=== PATIENT | male | born 1945 | race Caucasian/White ===

== ENCOUNTER 2017-02-20 11:38 | Emergency (ER) | payer MEDICARE ==
[2017-02-20] MEDS ORDERED: HYDROcodone/ACETAMIN 5-325 MG* 1 TAB PO ONE (12:12)
[2017-02-20 12:19] VITALS: BP 148/66
--- NOTE | 2017-02-20 12:31 | UC ---
Knee Pain HPI - HPI Summary HPI Summary: left lower leg pain---history of a knee replacement and has pain in proximal lower leg- - History of Current Complaint Chief Complaint: UCLowerExtremity Stated Complaint: KNEE INJURY Time Seen by Provider: 02/20/17 12:01 Hx Obtained From: Patient Onset/Duration: Sudden Onset - at 9am Pain Intensity: 8 Pain Scale Used: 0-10 Numeric Character: Aching, Throbbing Aggravating Factor(s): Movement, Weight Bearing Alleviating Factor(s): Position Associated Signs And Symptoms: Positive: Swelling Able to Bear Weight: Yes - with pain - Allergies/Home Medications Allergies/Adverse Reactions: Allergies Allergy/AdvReac Type Severity Reaction Status Date / Time No Known Allergies Allergy Verified 02/20/17 12:12 Home Medications: Home Medications Bp Med 1 tab PO DAILY 02/20/17 [History] Rivaroxaban TAB(*) [Xarelto 10 mg (*)] 1 tab PO DAILY 02/20/17 [History Confirmed 02/20/17] SUMAtriptan TAB* [Imitrex TAB*] 02/20/17 [History] Tylenol Arthritis 2 tab PO PRN 02/20/17 [History] PMH/Surg Hx/FS Hx/Imm Hx Previously Healthy: No Cardiovascular History: Hypertension - Surgical History Surgical History: Yes Surgery Procedure, Year, and Place: RIGHT ANKLE REPLACEMENT. LEFT KNEE REPLACEMENT. TONSILS REMOVED A CHILD - Family History Known Family History: Positive: None - Social History Occupation: Retired Lives: With Family Alcohol Use: Weekly Substance Use Type: None Smoking Status (MU): Never Smoked Tobacco Review of Systems Constitutional: Negative Skin: Negative Eyes: Negative ENT: Negative Respiratory: Negative Cardiovascular: Negative Gastrointestinal: Negative Genitourinary: Negative Motor: Negative Neurovascular: Negative Musculoskeletal: Negative, Other: - contusion with sewilling below left knee where patient hit his leg Neurological: Negative Psychological: Negative Is Patient Immunocompromised?: No All Other Systems Reviewed And Are Negative: Yes Physical Exam Triage Information Reviewed: Yes Appearance: Well-Appearing, Well-Nourished, Pain Distress - mild Vital Signs: Initial Vital Signs Temp 98.4 F 02/20/17 12:15 Pulse 55 02/20/17 12:15 Resp 18 02/20/17 12:15 BP 148/66 02/20/17 12:15 Pulse Ox 98 02/20/17 12:15 Vital Signs Reviewed: Yes Eye Exam: Normal Eyes: Positive: Conjunctiva Clear ENT Exam: Normal ENT: Positive: Normal ENT inspection, Hearing grossly normal. Negative: Nasal congestion, Nasal drainage, Trismus, Muffled/hoarse voice Dental Exam: Normal Neck exam: Normal Neck: Positive: Supple, Nontender Respiratory Exam: Normal Respiratory: Positive: Chest non-tender, No respiratory distress, No accessory muscle use Cardiovascular Exam: Normal Cardiovascular: Positive: RRR, Pulses Normal, Brisk Capillary Refill Musculoskeletal Exam: Other Musculoskeletal: Positive: Strength Intact, ROM Intact, Other: - swelling and tender left leg just below the knee Neurological Exam: Normal Neurological: Positive: Alert, Muscle Tone Normal Psychological Exam: Normal Psychological: Positive: Normal Response To Family Skin Exam: Normal Diagnostics - Radiology No standard instances Xray Interpretation: No Acute Changes Radiology Interpretation Completed By: ED Physician Knee Pain Course/Dx - Course Course Of Treatment: Rice, Miquel, follow with Dr. Kline prazul, pain control - Differential Dx/Diagnosis Differential Diagnosis/HQI/PQRI: Contusion, Fracture (Closed), Internal Derangement Of Knee, Sprain, Strain Provider Diagnoses: Contusion proximal left lower leg Discharge - Discharge Plan Condition: Stable Disposition: HOME Prescriptions: Hydrocodone-Acetaminophen [Hydrocodone/Acetaminophen 5-325 mg] 1 tab PO Q6H PRN #16 tab MDD 4 PRN Reason: Pain Patient Education Materials: Knee Pain (ED), Hypertension (ED), RICE Therapy ( ED), Hematoma (ED) Referrals: Pastor Kline MD [Medical Doctor] - 1 Week David Strickland MD [Primary Care Provider] - 2 Weeks
--- NOTE | 2017-02-20 12:58 | RAD ---
Indication: Left leg injury. 2 views of left leg demonstrates periosteal reaction in the right proximal fibula suggestive of a healing fracture. Patient status post left knee replacement. IMPRESSION: Periosteal reaction proximal fibula which may represent healing fracture. Clinical correlation is suggested.
== END 2017-02-20 13:16 | disposition home or self-care (01) ==
LOC: UCEAST 11:38
DX: S80.12XA Contusion of left lower leg, initial encounter (principal); X58.XXXA Exposure to other specified factors, initial encounter; Z96.652 Presence of left artificial knee joint; Z96.661 Presence of right artificial ankle joint
CPT/HCPCS: 99212; G0463

== ENCOUNTER 2022-11-15 15:28 | Observation (INO) ==
[2022-11-15] MEDS ORDERED: Lactated Ringers 1000 ml BAG 1,000 ML IV ONE ×3 (17:28→20:30)
[2022-11-15 17:58] LABS: ABS Eosinophils 0.2 10^3/uL (0.0-0.5); ABS Lymphocytes 1.5 10^3/uL (1.0-4.8); ABS Monocytes 0.9 10^3/uL (0.0-1.1); ABS Neutrophils 4.4 10^3/uL (1.5-7.6); ABS Nucleated RBC 0.02 10^3/ul; Eosinophil % 2.6 %; Hematocrit 44.1 % (38-53); Hemoglobin 14.9 g/dL (13.2-16.3); Lymphocyte % 21.5 %; Mean Corpuscular Hemoglobin 28.3 pg (27-33); Mean Corpuscular Hgb Conc 33.8 g/dL (31-36); Mean Corpuscular Volume 83.7 fL (80-97); Mean Platelet Volume 9.2 fL (7.5-11.2); Nucleated Red Blood Cells % 0.2 /100 WBC (0.0-0.4); Platelet Count 150 10^3/uL (150-450); Red Blood Count 5.27 10^6/uL (4.06-5.63); Red Cell Distribution Width 14.6 % (12-17)
[2022-11-15 18:13] LABS: Potassium 3.8 mmol/L (3.5-5.0); Total Bilirubin 1.1 mg/dL (0.2-1.0)
[2022-11-15 18:19] LABS: Albumin/Globulin Ratio 1.5 (1-3); C Reactive Protein 23.78 mg/L (<8.01); Creatinine, Serum 1.46 mg/dL (0.67-1.17); Globulin 2.7 g/dL (2-4); Total Protein 6.7 g/dL (6.4-8.9); eGFR CKD-EPI 49.8 (>60)
[2022-11-15 18:23] LABS: Urine Appearance Clear; Urine Bilirubin Negative (Negative); Urine Blood 3+ (Negative); Urine Color Yellow; Urine Glucose Negative (Negative); Urine Ketones Trace (Negative); Urine Nitrite Negative (Negative); Urine Protein Negative (Negative); Urine Specific Gravity 1.014 (1.002-1.030); Urine Urobilinogen Negative (Negative)
[2022-11-15 18:27] LABS: Urine Bacteria Absent (Absent); Urine Red Blood Cell 3+(>10/hpf) (Absent); Urine White Blood Cell Absent (Absent)
[2022-11-15] MEDS ORDERED: Iodixanol (CONTRAST) 320 MG/ML 100 ML SDV IV ONE (18:27)
[2022-11-15] MEDS ORDERED: cefTRIAXone 2 gm/50 mL D5W 2 GM/50 ML BAG IV ONE (19:52)
[2022-11-15] MEDS ORDERED: Ondansetron 4 mg VIAL 2 MG/ML 2 ml VIAL IV PRN (20:06)
[2022-11-15] MEDS ORDERED: Senna TAB 8.6 mg TAB PO PRN (20:06)
[2022-11-15] MEDS ORDERED: Polyethylene Glycol 3350 17 GM PACKET PO PRN (20:06)
[2022-11-15] MEDS ORDERED: Heparin DRIP 25,000 UNITS BAG 25,000 UNITS/500 ML BAG IV SCH (20:15)
[2022-11-15] MEDS ORDERED: Acetaminophen IV 1 GM/100ML 1,000 MG/100 ML BAG IV PRN (20:19)
[2022-11-15 20:43] LABS: INR 1.32 (0.88-1.18)
[2022-11-15 20:51] LABS: Creatinine, Serum 1.36 mg/dL (0.67-1.17); eGFR CKD-EPI 54.3 (>60)
[2022-11-15] MEDS ORDERED: Heparin 5000 UNITS/ML 1 mL VIAL IV SCH (21:00)
[2022-11-16 05:54] LABS: ABS Basophils 0.1 10^3/uL (0.0-0.1); ABS Eosinophils 0.2 10^3/uL (0.0-0.5); ABS Lymphocytes 1.3 10^3/uL (1.0-4.8); ABS Monocytes 0.7 10^3/uL (0.0-1.1); ABS Neutrophils 3.8 10^3/uL (1.5-7.6); ABS Nucleated RBC 0.01 10^3/ul; Eosinophil % 3.8 %; Hematocrit 40.6 % (38-53); Lymphocyte % 21.5 %; Mean Corpuscular Hemoglobin 28.7 pg (27-33); Mean Corpuscular Hgb Conc 34.5 g/dL (31-36); Mean Corpuscular Volume 83.1 fL (80-97); Mean Platelet Volume 8.7 fL (7.5-11.2); Nucleated Red Blood Cells % 0.1 /100 WBC (0.0-0.4); Platelet Count 131 10^3/uL (150-450); Red Blood Count 4.89 10^6/uL (4.06-5.63); Red Cell Distribution Width 14.4 % (12-17); White Blood Count 6.2 10^3/uL (3.6-10.2)
[2022-11-16 06:12] LABS: Calcium 9.4 mg/dL (8.6-10.3); Creatinine, Serum 1.09 mg/dL (0.67-1.17); Magnesium 1.8 mg/dL (1.9-2.7); Potassium 3.7 mmol/L (3.5-5.0); eGFR CKD-EPI 70.8 (>60)
[2022-11-16] MEDS ORDERED: Lactated Ringers 1000 ml BAG 1,000 ML IV ONE (06:34)
[2022-11-16] MEDS ORDERED: Magnesium Sulfate 2 gm BAG 2 GM/50 ML BAG IVPB ONE (06:36)
[2022-11-16] MEDS ORDERED: ICOSAPENT ETHYL 1 GM CAPSULE (NF) PO SCH (09:00)
[2022-11-16 09:55] VITALS: BP 118/70
== END 2022-11-16 12:00 | disposition home or self-care (01) ==
LOC: ED 15:28 → EDHOLD 15:28 → SUATTDRO 20:06 → MED 22:23
PROVIDERS: ADMIT Hospitalist; ATTEND Internal Medicine